=== PATIENT | male | born 1945 | race Caucasian/White ===

== ENCOUNTER 2021-06-13 09:57 | Outpatient (RCR) | payer MEDICARE, OTHER, SELFPAY ==
[2021-06-13 10:35] LABS: Abs Immature Grans 0.03 10^3/uL (0.0-0.06); Absolute Basophil Count 0.04 10^3/uL (0.0-0.2); Absolute Eosinophil Count 0.16 10^3/uL (0.0-0.7); Absolute Lymphocyte Count 0.96 10^3/uL (1.2-3.4); Absolute Monocyte Count 1.03 10^3/uL (0.1-0.8); Absolute Neutrophil Count 6.45 10^3/uL (1.2-6.7); Basophils % 0.5; Eosinophils % 1.8; HCT 45.7 % (40.0-50.0); HGB 15.1 g/dL (13.5-17.5); Immature Grans % 0.3; Lymphocytes % 11.1; MCH 32.1 pg (27.0-33.0); MCV 97.2 fL (80-95); Monocytes % 11.9; Neutrophils % 74.4; Nucleated RBC 0 %; Platelet Count 220 10^3/uL (130-400); RDW 13.4 % (11.8-14.1); RDW-SD 48.5 fL; WBC 8.67 10^3/uL (4.4-10.8)
[2021-06-13 10:50] LABS: ALT 39 U/L (16-63); AST 19 U/L (15-37); Albumin 4.4 g/dL (3.4-5.0); Alkaline Phosphatase 133 U/L (46-116); Anion Gap 10.1 mmol/L (3-11); BUN 25 mg/dL (7-18); Bilirubin, Total 0.4 mg/dL (0.2-1.0); CO2 29.9 mmol/L (21.0-32.0); CREATININE 1.5 mg/dL (0.70-1.30); Calcium 9.2 mg/dL (8.5-10.1); Chloride 102 mmol/L (98-107); Estimated GFR 45.62 (mL/min/1.73m2); Glucose 105 mg/dL (74-106); LDH 153 U/L (85-227); Sodium 142 mmol/L (136-145); Total Protein 7.5 g/dL (6.4-8.2)
== END 2021-06-29 23:59 | disposition home or self-care (01) ==
LOC: INF 09:57
PROVIDERS: PCP Nurse Practitioner Primary Care; Visit Provider Internal Medicine Hematology & Oncology
DX: C83.30 Diffuse large B-cell lymphoma, unspecified site (principal)
CPT/HCPCS: 36415; 80053; 83615; 85025

== ENCOUNTER 2022-04-12 01:27 | Outpatient (RCR) | payer OTHER, SELFPAY | END 2022-04-29 23:59 | disposition home or self-care (01) | LOC: INF 01:27 | PROVIDERS: PCP Nurse Practitioner Primary Care; Visit Provider Internal Medicine Hematology & Oncology | DX: D69.3 Immune thrombocytopenic purpura (principal); Z29.8 Encounter for other specified prophylactic measures | CPT/HCPCS: 96372; Q0221 ==

== ENCOUNTER 2022-05-22 02:12 | Outpatient (RCR) | payer OTHER, SELFPAY ==
[2022-05-01] MEDS: Normal Saline Flush 10 ML SYR IVP (07:19)
[2022-05-01 07:48] LABS: Abs Immature Grans 0.03 10^3/uL (0.0-0.06); Absolute Basophil Count 0.03 10^3/uL (0.0-0.2); Absolute Eosinophil Count 0.19 10^3/uL (0.0-0.7); Absolute Monocyte Count 0.89 10^3/uL (0.1-0.8); Absolute Neutrophil Count 6.67 10^3/uL (1.2-6.7); Basophils % 0.3; Eosinophils % 2.2; HCT 43.7 % (40.0-50.0); HGB 14.7 g/dL (13.5-17.5); Immature Grans % 0.3; Lymphocytes % 11.4; MCH 32.5 pg (27.0-33.0); MCHC 33.6 % (32.0-36.0); MCV 97 fL (80-95); MPV 8.8 fL (8.0-11.0); Monocytes % 10.1; Neutrophils % 75.7; Platelet Count 258 10^3/uL (130-400); RBC 4.53 10^6/uL (4.36-5.78); RDW 13.5 % (11.8-14.1); RDW-SD 47.9 fL; WBC 8.81 10^3/uL (4.4-10.8)
[2022-05-01 08:06] LABS: ALT 27 U/L (16-63); AST 11 U/L (15-37); Albumin 3.8 g/dL (3.4-5.0); Alkaline Phosphatase 132 U/L (46-116); Anion Gap 9.7 mmol/L (3-11); BUN 25 mg/dL (7-18); Bilirubin, Total 0.5 mg/dL (0.2-1.0); CO2 29.3 mmol/L (21.0-32.0); CREATININE 1.7 mg/dL (0.70-1.30); Chloride 103 mmol/L (98-107); Estimated GFR 41.52 (mL/min/1.73m2); Glucose 119 mg/dL (74-106); LDH 154 U/L (85-227); Potassium 3.1 mmol/L (3.5-5.1); Sodium 142 mmol/L (136-145); Total Protein 6.9 g/dL (6.4-8.2)
[2022-05-22] MEDS: Normal Saline Flush 10 ML SYR IVP (07:34)
[2022-05-22 07:44] LABS: Abs Immature Grans 0.12 10^3/uL (0.0-0.06); Absolute Basophil Count 0.03 10^3/uL (0.0-0.2); Absolute Eosinophil Count 0.39 10^3/uL (0.0-0.7); Absolute Monocyte Count 1.28 10^3/uL (0.1-0.8); Basophils % 0.3; Eosinophils % 3.4; HGB 14.5 g/dL (13.5-17.5); Lymphocytes % 10.4; MCH 32.5 pg (27.0-33.0); MCHC 33.7 % (32.0-36.0); MCV 96 fL (80-95); MPV 10.1 fL (8.0-11.0); Monocytes % 11.1; Neutrophils % 73.8; Platelet Count 169 10^3/uL (130-400); RBC 4.46 10^6/uL (4.36-5.78); RDW-SD 49.4 fL; WBC 11.56 10^3/uL (4.4-10.8)
[2022-05-22 07:45] LABS: Absolute Neutrophil Count 8.53 10^3/uL (1.2-6.7)
[2022-05-22 08:00] LABS: ALT 28 U/L (16-63); AST 12 U/L (15-37); Albumin 3.5 g/dL (3.4-5.0); Alkaline Phosphatase 136 U/L (46-116); BUN 18 mg/dL (7-18); Bilirubin, Total 0.6 mg/dL (0.2-1.0); CREATININE 1.4 mg/dL (0.70-1.30); Calcium 8.7 mg/dL (8.5-10.1); Chloride 99 mmol/L (98-107); Estimated GFR 52.09 (mL/min/1.73m2); Glucose 101 mg/dL (74-106); LDH 150 U/L (85-227); Sodium 135 mmol/L (136-145); Total Protein 6.8 g/dL (6.4-8.2)
== END 2022-05-29 23:59 | disposition home or self-care (01) ==
LOC: INF 02:12
PROVIDERS: PCP Nurse Practitioner Primary Care; Visit Provider Internal Medicine Hematology & Oncology
DX: Z45.2 Encounter for adjustment and management of vascular access device (principal); C82.08 Follicular lymphoma grade I, lymph nodes of multiple sites
CPT/HCPCS: 36591; 80053; 83615; 85025

== ENCOUNTER 2022-06-26 02:15 | Outpatient (RCR) | payer OTHER, SELFPAY ==
[2022-06-26] MEDS: Normal Saline Flush 10 ML SYR IVP (07:36)
[2022-06-26 07:48] LABS: Abs Immature Grans 0.04 10^3/uL (0.0-0.06); Absolute Basophil Count 0.08 10^3/uL (0.0-0.2); Absolute Eosinophil Count 0.42 10^3/uL (0.0-0.7); Absolute Lymphocyte Count 1.13 10^3/uL (1.2-3.4); Absolute Monocyte Count 1.18 10^3/uL (0.1-0.8); Absolute Neutrophil Count 6.04 10^3/uL (1.2-6.7); Basophils % 0.9; Eosinophils % 4.7; HCT 39.7 % (40.0-50.0); HGB 13.8 g/dL (13.5-17.5); Immature Grans % 0.4; Lymphocytes % 12.7; MCH 33.3 pg (27.0-33.0); MCHC 34.8 % (32.0-36.0); MCV 96 fL (80-95); MPV 9.4 fL (8.0-11.0); Monocytes % 13.3; Platelet Count 222 10^3/uL (130-400); RBC 4.15 10^6/uL (4.36-5.78); RDW 14.5 % (11.8-14.1); RDW-SD 50.2 fL; WBC 8.89 10^3/uL (4.4-10.8)
[2022-06-26 08:02] LABS: ALT 30 U/L (16-63); AST 18 U/L (15-37); Albumin 3.6 g/dL (3.4-5.0); Alkaline Phosphatase 106 U/L (46-116); Anion Gap 7.5 mmol/L (3-11); BUN 17 mg/dL (7-18); Bilirubin, Total 0.6 mg/dL (0.2-1.0); CO2 29.5 mmol/L (21.0-32.0); CREATININE 1.7 mg/dL (0.70-1.30); Calcium 8.7 mg/dL (8.5-10.1); Chloride 102 mmol/L (98-107); Estimated GFR 41.26 (mL/min/1.73m2); Glucose 108 mg/dL (74-106); LDH 142 U/L (85-227); Potassium 3.2 mmol/L (3.5-5.1); Sodium 139 mmol/L (136-145); Total Protein 6.3 g/dL (6.4-8.2)
== END 2022-06-29 23:59 | disposition home or self-care (01) ==
LOC: INF 02:15
PROVIDERS: PCP Nurse Practitioner Primary Care; Visit Provider Internal Medicine Hematology & Oncology
DX: C82.08 Follicular lymphoma grade I, lymph nodes of multiple sites (principal); Z45.2 Encounter for adjustment and management of vascular access device
CPT/HCPCS: 36591; 80053; 83615; 85025

== ENCOUNTER 2022-07-24 01:54 | Outpatient (RCR) | payer OTHER, SELFPAY ==
[2022-07-24] MEDS: Normal Saline Flush 10 ML SYR IVP (08:36)
[2022-07-24 08:46] LABS: Abs Immature Grans 0.03 10^3/uL (0.0-0.06); Absolute Basophil Count 0.07 10^3/uL (0.0-0.2); Absolute Eosinophil Count 0.21 10^3/uL (0.0-0.7); Absolute Lymphocyte Count 1.26 10^3/uL (1.2-3.4); Absolute Monocyte Count 1.25 10^3/uL (0.1-0.8); Absolute Neutrophil Count 6.27 10^3/uL (1.2-6.7); Basophils % 0.8; Eosinophils % 2.3; HCT 41.8 % (40.0-50.0); HGB 14.3 g/dL (13.5-17.5); Immature Grans % 0.3; Lymphocytes % 13.9; MCH 33.4 pg (27.0-33.0); MCHC 34.2 % (32.0-36.0); MCV 98 fL (80-95); MPV 9.3 fL (8.0-11.0); Monocytes % 13.8; Neutrophils % 68.9; Platelet Count 211 10^3/uL (130-400); RBC 4.28 10^6/uL (4.36-5.78); RDW 14.6 % (11.8-14.1); RDW-SD 52.9 fL; WBC 9.09 10^3/uL (4.4-10.8)
[2022-07-24 09:05] LABS: ALT 30 U/L (16-63); AST 17 U/L (15-37); Albumin 3.8 g/dL (3.4-5.0); Alkaline Phosphatase 106 U/L (46-116); Anion Gap 9.3 mmol/L (3-11); BUN 15 mg/dL (7-18); Bilirubin, Total 0.4 mg/dL (0.2-1.0); CO2 28.7 mmol/L (21.0-32.0); CREATININE 1.7 mg/dL (0.70-1.30); Calcium 8.9 mg/dL (8.5-10.1); Chloride 104 mmol/L (98-107); Estimated GFR 41.26 (mL/min/1.73m2); Glucose 96 mg/dL (74-106); LDH 148 U/L (85-227); Potassium 3.4 mmol/L (3.5-5.1); Sodium 142 mmol/L (136-145); Total Protein 6.6 g/dL (6.4-8.2)
== END 2022-07-30 23:59 | disposition home or self-care (01) ==
LOC: INF 01:54
PROVIDERS: PCP Nurse Practitioner Primary Care; Visit Provider Internal Medicine Hematology & Oncology
DX: C82.08 Follicular lymphoma grade I, lymph nodes of multiple sites (principal); Z45.2 Encounter for adjustment and management of vascular access device
CPT/HCPCS: 36591; 80053; 83615; 85025

== ENCOUNTER 2022-08-21 02:05 | Outpatient (RCR) | payer OTHER, SELFPAY ==
[2022-08-21] MEDS: Normal Saline Flush 10 ML SYR IVP (11:39)
[2022-08-21 11:48] LABS: Abs Immature Grans 0.04 10^3/uL (0.0-0.06); Absolute Basophil Count 0.09 10^3/uL (0.0-0.2); Absolute Eosinophil Count 0.26 10^3/uL (0.0-0.7); Absolute Lymphocyte Count 1.22 10^3/uL (1.2-3.4); Absolute Monocyte Count 1.46 10^3/uL (0.1-0.8); Absolute Neutrophil Count 6.38 10^3/uL (1.2-6.7); Eosinophils % 2.8; HCT 42.2 % (40.0-50.0); HGB 14.3 g/dL (13.5-17.5); Immature Grans % 0.4; Lymphocytes % 12.9; MCH 32.6 pg (27.0-33.0); MCHC 33.9 % (32.0-36.0); MCV 96 fL (80-95); MPV 9.1 fL (8.0-11.0); Monocytes % 15.4; Neutrophils % 67.5; Platelet Count 190 10^3/uL (130-400); RBC 4.38 10^6/uL (4.36-5.78); RDW 14.7 % (11.8-14.1); RDW-SD 52.1 fL; WBC 9.45 10^3/uL (4.4-10.8)
[2022-08-21 12:03] LABS: ALT 28 U/L (16-63); AST 13 U/L (15-37); Albumin 3.7 g/dL (3.4-5.0); Alkaline Phosphatase 128 U/L (46-116); Anion Gap 9.1 mmol/L (3-11); BUN 17 mg/dL (7-18); Bilirubin, Total 0.4 mg/dL (0.2-1.0); CO2 28.9 mmol/L (21.0-32.0); CREATININE 1.7 mg/dL (0.70-1.30); Calcium 9.1 mg/dL (8.5-10.1); Chloride 105 mmol/L (98-107); Estimated GFR 41.26 (mL/min/1.73m2); Glucose 116 mg/dL (74-106); LDH 141 U/L (85-227); Potassium 3.4 mmol/L (3.5-5.1); Sodium 143 mmol/L (136-145); Total Protein 6.4 g/dL (6.4-8.2)
== END 2022-08-27 23:59 | disposition home or self-care (01) ==
LOC: INF 02:05
PROVIDERS: PCP Nurse Practitioner Primary Care; Visit Provider Internal Medicine Hematology & Oncology
DX: C82.08 Follicular lymphoma grade I, lymph nodes of multiple sites (principal); Z45.2 Encounter for adjustment and management of vascular access device
CPT/HCPCS: 36591; 80053; 83615; 85025

== ENCOUNTER 2022-09-18 02:37 | Outpatient (RCR) | payer OTHER, SELFPAY ==
[2022-09-18] MEDS: Normal Saline Flush 10 ML SYR IVP (07:19)
[2022-09-18 07:26] LABS: Abs Immature Grans 0.04 10^3/uL (0.0-0.06); Absolute Basophil Count 0.08 10^3/uL (0.0-0.2); Absolute Eosinophil Count 0.27 10^3/uL (0.0-0.7); Absolute Monocyte Count 1.48 10^3/uL (0.1-0.8); Absolute Neutrophil Count 6.05 10^3/uL (1.2-6.7); Basophils % 0.9; HCT 44.3 % (40.0-50.0); HGB 15.4 g/dL (13.5-17.5); Immature Grans % 0.4; Lymphocytes % 13.2; MCH 32.8 pg (27.0-33.0); MCHC 34.8 % (32.0-36.0); MCV 94 fL (80-95); Monocytes % 16.2; Neutrophils % 66.3; Platelet Count 197 10^3/uL (130-400); RDW 15.1 % (11.8-14.1); RDW-SD 52.3 fL; WBC 9.12 10^3/uL (4.4-10.8)
[2022-09-18 07:46] LABS: ALT 23 U/L (16-63); AST 9 U/L (15-37); Albumin 3.7 g/dL (3.4-5.0); Alkaline Phosphatase 126 U/L (46-116); Anion Gap 7.6 mmol/L (3-11); BUN 23 mg/dL (7-18); Bilirubin, Total 0.4 mg/dL (0.2-1.0); CO2 31.4 mmol/L (21.0-32.0); CREATININE 1.8 mg/dL (0.70-1.30); Calcium 8.9 mg/dL (8.5-10.1); Chloride 105 mmol/L (98-107); Estimated GFR 38.53 (mL/min/1.73m2); Glucose 108 mg/dL (74-106); LDH 122 U/L (85-227); Sodium 144 mmol/L (136-145); Total Protein 6.6 g/dL (6.4-8.2)
[2022-09-18 08:08] LABS: Potassium 2.6 mmol/L (3.5-5.1)
== END 2022-09-27 23:59 | disposition home or self-care (01) ==
LOC: INF 02:37
PROVIDERS: PCP Nurse Practitioner Primary Care; Visit Provider Internal Medicine Hematology & Oncology
DX: Z45.2 Encounter for adjustment and management of vascular access device (principal); C82.08 Follicular lymphoma grade I, lymph nodes of multiple sites
CPT/HCPCS: 36591; 80053; 83615; 85025

== ENCOUNTER 2022-10-16 02:32 | Outpatient (RCR) | payer OTHER, SELFPAY ==
[2022-10-16] MEDS: Normal Saline Flush 10 ML SYR IVP (07:26)
[2022-10-16 07:48] LABS: Abs Immature Grans 0.04 10^3/uL (0.0-0.06); Absolute Basophil Count 0.07 10^3/uL (0.0-0.2); Absolute Eosinophil Count 0.22 10^3/uL (0.0-0.7); Absolute Lymphocyte Count 0.94 10^3/uL (1.2-3.4); Absolute Monocyte Count 1.26 10^3/uL (0.1-0.8); Absolute Neutrophil Count 5.71 10^3/uL (1.2-6.7); Basophils % 0.8; Eosinophils % 2.7; HCT 39.7 % (40.0-50.0); HGB 13.9 g/dL (13.5-17.5); Immature Grans % 0.5; Lymphocytes % 11.4; MCH 33.9 pg (27.0-33.0); MCV 97 fL (80-95); MPV 9.7 fL (8.0-11.0); Monocytes % 15.3; Neutrophils % 69.3; Platelet Count 202 10^3/uL (130-400); RDW 15.4 % (11.8-14.1); RDW-SD 54.6 fL; WBC 8.24 10^3/uL (4.4-10.8)
[2022-10-16 08:02] LABS: ALT 18 U/L (16-63); AST 8 U/L (15-37); Albumin 3.3 g/dL (3.4-5.0); Alkaline Phosphatase 116 U/L (46-116); Anion Gap 10.7 mmol/L (3-11); BUN 18 mg/dL (7-18); Bilirubin, Total 0.4 mg/dL (0.2-1.0); CO2 28.3 mmol/L (21.0-32.0); CREATININE 1.8 mg/dL (0.70-1.30); Calcium 8.5 mg/dL (8.5-10.1); Chloride 106 mmol/L (98-107); Estimated GFR 38.53 (mL/min/1.73m2); Glucose 131 mg/dL (74-106); LDH 122 U/L (85-227); Sodium 145 mmol/L (136-145)
[2022-10-16 08:12] LABS: Potassium 2.6 mmol/L (3.5-5.1)
[2022-10-16 16:31] LABS: Magnesium 1.8 mg/dL (1.8-2.4)
== END 2022-10-27 23:59 | disposition home or self-care (01) ==
LOC: INF 02:32
PROVIDERS: Nurse Practitioner Adult Health; PCP Nurse Practitioner Primary Care; Visit Provider Internal Medicine Hematology & Oncology
DX: Z45.2 Encounter for adjustment and management of vascular access device (principal); C83.38 Diffuse large B-cell lymphoma, lymph nodes of multiple sites
CPT/HCPCS: 36591; 80053; 83615; 83735; 85025

== ENCOUNTER 2022-11-13 02:44 | Outpatient (RCR) | payer OTHER, SELFPAY ==
[2022-11-13] MEDS: Normal Saline Flush 10 ML SYR IVP (07:34)
[2022-11-13 07:53] LABS: Abs Immature Grans 0.03 10^3/uL (0.0-0.06); Absolute Basophil Count 0.11 10^3/uL (0.0-0.2); Absolute Eosinophil Count 0.31 10^3/uL (0.0-0.7); Absolute Lymphocyte Count 0.98 10^3/uL (1.2-3.4); Absolute Monocyte Count 1.29 10^3/uL (0.1-0.8); Absolute Neutrophil Count 4.91 10^3/uL (1.2-6.7); Basophils % 1.4; Eosinophils % 4.1; HCT 40.6 % (40.0-50.0); HGB 14.2 g/dL (13.5-17.5); Immature Grans % 0.4; Lymphocytes % 12.8; MCH 34.6 pg (27.0-33.0); MCV 99 fL (80-95); MPV 9.2 fL (8.0-11.0); Monocytes % 16.9; Neutrophils % 64.4; Platelet Count 184 10^3/uL (130-400); RDW 14.6 % (11.8-14.1); RDW-SD 53.1 fL; WBC 7.63 10^3/uL (4.4-10.8)
[2022-11-13 08:08] LABS: ALT 22 U/L (16-63); AST 9 U/L (15-37); Albumin 3.4 g/dL (3.4-5.0); Alkaline Phosphatase 127 U/L (46-116); Anion Gap 7.3 mmol/L (3-11); BUN 20 mg/dL (7-18); Bilirubin, Total 0.4 mg/dL (0.2-1.0); CO2 28.7 mmol/L (21.0-32.0); CREATININE 1.7 mg/dL (0.70-1.30); Calcium 8.7 mg/dL (8.5-10.1); Chloride 105 mmol/L (98-107); Estimated GFR 41.26 (mL/min/1.73m2); Glucose 107 mg/dL (74-106); LDH 121 U/L (85-227); Sodium 141 mmol/L (136-145); Total Protein 6.2 g/dL (6.4-8.2)
== END 2022-11-27 23:59 | disposition home or self-care (01) ==
LOC: INF 02:44
PROVIDERS: PCP Nurse Practitioner Primary Care; Visit Provider Internal Medicine Hematology & Oncology
DX: Z45.2 Encounter for adjustment and management of vascular access device (principal); C82.08 Follicular lymphoma grade I, lymph nodes of multiple sites
CPT/HCPCS: 36591; 80053; 83615; 85025

== ENCOUNTER 2022-12-11 03:10 | Outpatient (RCR) | payer OTHER, SELFPAY ==
[2022-12-11] MEDS: Normal Saline Flush 10 ML SYR IVP (07:18)
[2022-12-11 07:48] LABS: Abs Immature Grans 0.03 10^3/uL (0.0-0.06); Absolute Basophil Count 0.09 10^3/uL (0.0-0.2); Absolute Eosinophil Count 0.36 10^3/uL (0.0-0.7); Absolute Lymphocyte Count 1.07 10^3/uL (1.2-3.4); Absolute Monocyte Count 1.22 10^3/uL (0.1-0.8); Basophils % 1.3; Eosinophils % 5.3; HCT 40.3 % (40.0-50.0); HGB 13.5 g/dL (13.5-17.5); Immature Grans % 0.4; Lymphocytes % 15.8; MCH 33.5 pg (27.0-33.0); MCHC 33.5 % (32.0-36.0); MCV 100 fL (80-95); MPV 9.1 fL (8.0-11.0); Neutrophils % 59.2; Platelet Count 185 10^3/uL (130-400); RBC 4.03 10^6/uL (4.36-5.78); RDW 14.6 % (11.8-14.1); RDW-SD 53.1 fL; WBC 6.77 10^3/uL (4.4-10.8)
[2022-12-11 08:06] LABS: ALT 17 U/L (16-63); AST 9 U/L (15-37); Albumin 3.4 g/dL (3.4-5.0); Alkaline Phosphatase 102 U/L (46-116); Anion Gap 9.4 mmol/L (3-11); BUN 13 mg/dL (7-18); Bilirubin, Total 0.5 mg/dL (0.2-1.0); CO2 26.6 mmol/L (21.0-32.0); CREATININE 1.3 mg/dL (0.70-1.30); Calcium 8.6 mg/dL (8.5-10.1); Chloride 108 mmol/L (98-107); Estimated GFR 56.93 (mL/min/1.73m2); Glucose 95 mg/dL (74-106); LDH 134 U/L (85-227); Potassium 3.3 mmol/L (3.5-5.1); Sodium 144 mmol/L (136-145); Total Protein 6.2 g/dL (6.4-8.2)
== END 2022-12-27 23:59 | disposition home or self-care (01) ==
LOC: INF 03:10
PROVIDERS: PCP Nurse Practitioner Primary Care; Visit Provider Internal Medicine Hematology & Oncology
DX: Z45.2 Encounter for adjustment and management of vascular access device (principal); C82.08 Follicular lymphoma grade I, lymph nodes of multiple sites
CPT/HCPCS: 36591; 80053; 83615; 85025

== ENCOUNTER 2023-01-08 02:28 | Outpatient (RCR) | payer OTHER, SELFPAY ==
[2023-01-08] MEDS: Normal Saline Flush 10 ML SYR IVP (07:40)
[2023-01-08 07:50] LABS: Abs Immature Grans 0.04 10^3/uL (0.0-0.06); Absolute Eosinophil Count 0.29 10^3/uL (0.0-0.7); Absolute Lymphocyte Count 0.98 10^3/uL (1.2-3.4); Absolute Neutrophil Count 4.81 10^3/uL (1.2-6.7); Basophils % 1.3; Eosinophils % 3.9; HCT 40.7 % (40.0-50.0); HGB 14.2 g/dL (13.5-17.5); Immature Grans % 0.5; Lymphocytes % 13.2; MCH 33.9 pg (27.0-33.0); MCHC 34.9 % (32.0-36.0); MCV 97 fL (80-95); MPV 9.1 fL (8.0-11.0); Monocytes % 16.2; Neutrophils % 64.9; Platelet Count 300 10^3/uL (130-400); RBC 4.19 10^6/uL (4.36-5.78); RDW 13.9 % (11.8-14.1); WBC 7.42 10^3/uL (4.4-10.8)
[2023-01-08 07:55] LABS: Bilirubin Negative (Negative); Blood Negative (Negative); Clarity Clear (Clear); Glucose Negative (Negative); Ketones Trace mg/dL (Negative); Leukocyte Esterase Small (Negative); Nitrite Negative (Negative); Urobilinogen 0.2 mg/dL (Up to 0.2); pH 5.5 (5-8)
[2023-01-08 08:04] LABS: COMMENT (LAB VIEW ONLY) 184.06 mg/dL; Microalb ug/mg Crea 7.1 ug/mg Cr
[2023-01-08 08:16] LABS: ALT 21 U/L (16-63); AST 14 U/L (15-37); Albumin 3.4 g/dL (3.4-5.0); Alkaline Phosphatase 114 U/L (46-116); Anion Gap 11.7 mmol/L (3-11); BUN 14 mg/dL (7-18); Bacteria Few HPF (Negative); Bilirubin, Total 0.3 mg/dL (0.2-1.0); CO2 26.3 mmol/L (21.0-32.0); CREATININE 1.6 mg/dL (0.70-1.30); Calcium 8.9 mg/dL (8.5-10.1); Calculated LDL 77 mg/dL (<100); Chloride 106 mmol/L (98-107); Cholesterol 145 mg/dL (<200); Epithelial Cells Rare HPF (Negative); Estimated GFR 44.38 (mL/min/1.73m2); Glucose 104 mg/dL (74-106); HDL Cholesterol 45 mg/dL (40-60); Potassium 3.2 mmol/L (3.5-5.1); RBC 0-2 HPF (0-2); Sodium 144 mmol/L (136-145); TSH 1.41 uIU/mL (0.36-3.74); Total Protein 6.6 g/dL (6.4-8.2); Triglyceride 116 mg/dL (<150)
[2023-01-08 08:17] LABS: C & S Indicated? Yes; Casts 3-5 Hyaline LPF (Negative); Crystals Negative HPF (Negative); Mucus Negative (Negative)
[2023-01-08 08:33] LABS: LDH 126 U/L (85-227); Uric Acid 3.1 mg/dL (3.5-7.2)
[2023-01-08 10:52] LABS: Vitamin B12 519 pg/mL (193-986)
== END 2023-01-27 23:59 | disposition home or self-care (01) ==
LOC: INF 02:28
PROVIDERS: PCP Nurse Practitioner Primary Care; Visit Provider Internal Medicine Hematology & Oncology
DX: C82.08 Follicular lymphoma grade I, lymph nodes of multiple sites (principal); Z45.2 Encounter for adjustment and management of vascular access device
CPT/HCPCS: 36591; 80053; 80061; 81003; 81015; 82043; 82570; 82607; 83036; 83615; 84443; 84550; 85025; 87086

== ENCOUNTER 2023-02-26 01:33 | Outpatient (RCR) | payer OTHER, SELFPAY ==
[2023-02-05] MEDS: Normal Saline Flush 10 ML SYR IVP (07:33)
[2023-02-05 07:49] LABS: Abs Immature Grans 0.04 10^3/uL (0.0-0.06); Absolute Basophil Count 0.12 10^3/uL (0.0-0.2); Absolute Eosinophil Count 0.36 10^3/uL (0.0-0.7); Absolute Monocyte Count 1.31 10^3/uL (0.1-0.8); Basophils % 1.2; Eosinophils % 3.7; HCT 40.6 % (40.0-50.0); Immature Grans % 0.4; Lymphocytes % 10.4; MCH 33.2 pg (27.0-33.0); MCHC 34.5 % (32.0-36.0); MCV 96 fL (80-95); MPV 9.2 fL (8.0-11.0); Monocytes % 13.6; Neutrophils % 70.7; Platelet Count 219 10^3/uL (130-400); RBC 4.22 10^6/uL (4.36-5.78); RDW 14.4 % (11.8-14.1); RDW-SD 50.8 fL; WBC 9.63 10^3/uL (4.4-10.8)
[2023-02-05 08:08] LABS: ALT 19 U/L (16-63); AST 9 U/L (15-37); Albumin 3.6 g/dL (3.4-5.0); Alkaline Phosphatase 124 U/L (46-116); Anion Gap 10.1 mmol/L (3-11); BUN 12 mg/dL (7-18); Bilirubin, Total 0.6 mg/dL (0.2-1.0); CO2 26.9 mmol/L (21.0-32.0); CREATININE 1.6 mg/dL (0.70-1.30); Chloride 109 mmol/L (98-107); Estimated GFR 44.38 (mL/min/1.73m2); Glucose 99 mg/dL (74-106); LDH 143 U/L (85-227); Potassium 3.6 mmol/L (3.5-5.1); Sodium 146 mmol/L (136-145); Total Protein 6.1 g/dL (6.4-8.2)
[2023-02-26] MEDS: Heparin 500 UNITS/5 ML SYRINGE IV (07:36)
[2023-02-26] MEDS: Normal Saline Flush 10 ML SYR IVP (07:36)
[2023-02-26 07:52] LABS: Abs Immature Grans 0.07 10^3/uL (0.0-0.06); Absolute Basophil Count 0.07 10^3/uL (0.0-0.2); Absolute Eosinophil Count 1.17 10^3/uL (0.0-0.7); Absolute Lymphocyte Count 1.12 10^3/uL (1.2-3.4); Absolute Monocyte Count 1.47 10^3/uL (0.1-0.8); Absolute Neutrophil Count 4.93 10^3/uL (1.2-6.7); Basophils % 0.8; Eosinophils % 13.3; HGB 14.3 g/dL (13.5-17.5); Immature Grans % 0.8; Lymphocytes % 12.7; MCH 33.3 pg (27.0-33.0); MCHC 34.9 % (32.0-36.0); MCV 95 fL (80-95); MPV 9.8 fL (8.0-11.0); Monocytes % 16.6; Neutrophils % 55.8; Platelet Count 194 10^3/uL (130-400); RDW 14.5 % (11.8-14.1); RDW-SD 50.5 fL; WBC 8.83 10^3/uL (4.4-10.8)
[2023-02-26 08:11] LABS: ALT 16 U/L (16-63); AST 6 U/L (15-37); Albumin 3.7 g/dL (3.4-5.0); Alkaline Phosphatase 132 U/L (46-116); Anion Gap 11.5 mmol/L (3-11); BUN 13 mg/dL (7-18); Bilirubin, Total 0.7 mg/dL (0.2-1.0); CO2 27.5 mmol/L (21.0-32.0); CREATININE 1.6 mg/dL (0.70-1.30); Calcium 8.9 mg/dL (8.5-10.1); Chloride 103 mmol/L (98-107); Estimated GFR 44.38 (mL/min/1.73m2); Glucose 100 mg/dL (74-106); LDH 111 U/L (85-227); Potassium 3.1 mmol/L (3.5-5.1); Sodium 142 mmol/L (136-145); Total Protein 6.6 g/dL (6.4-8.2)
== END 2023-02-27 23:59 | disposition home or self-care (01) ==
LOC: INF 01:33
PROVIDERS: PCP Nurse Practitioner Primary Care; Visit Provider Internal Medicine Hematology & Oncology
DX: C82.08 Follicular lymphoma grade I, lymph nodes of multiple sites (principal); Z45.2 Encounter for adjustment and management of vascular access device
CPT/HCPCS: 36591; 80053; 83615; 85025

== ENCOUNTER 2023-04-09 07:20 | Outpatient (RCR) | payer OTHER, SELFPAY ==
[2023-04-02] MEDS: Heparin 500 UNITS/5 ML SYRINGE IV (07:22)
[2023-04-02] MEDS: Normal Saline Flush 10 ML SYR IVP (07:22)
[2023-04-02 07:58] LABS: Abs Immature Grans 0.02 10^3/uL (0.0-0.06); Absolute Basophil Count 0.08 10^3/uL (0.0-0.2); Absolute Eosinophil Count 0.27 10^3/uL (0.0-0.7); Absolute Lymphocyte Count 0.96 10^3/uL (1.2-3.4); Absolute Monocyte Count 1.12 10^3/uL (0.1-0.8); Absolute Neutrophil Count 3.82 10^3/uL (1.2-6.7); Basophils % 1.3; Eosinophils % 4.3; HCT 39.6 % (40.0-50.0); HGB 13.6 g/dL (13.5-17.5); Immature Grans % 0.3; Lymphocytes % 15.3; MCH 33.6 pg (27.0-33.0); MCHC 34.3 % (32.0-36.0); MCV 98 fL (80-95); MPV 9.7 fL (8.0-11.0); Monocytes % 17.9; Neutrophils % 60.9; Platelet Count 177 10^3/uL (130-400); RBC 4.05 10^6/uL (4.36-5.78); RDW 14.9 % (11.8-14.1); RDW-SD 54.3 fL; WBC 6.27 10^3/uL (4.4-10.8)
[2023-04-02 08:25] LABS: ALT 21 U/L (16-63); AST 13 U/L (15-37); Albumin 3.6 g/dL (3.4-5.0); Alkaline Phosphatase 123 U/L (46-116); Anion Gap 11.1 mmol/L (3-11); BUN 14 mg/dL (7-18); Bilirubin, Total 0.5 mg/dL (0.2-1.0); CO2 24.9 mmol/L (21.0-32.0); CREATININE 1.8 mg/dL (0.70-1.30); Calcium 9.3 mg/dL (8.5-10.1); Chloride 107 mmol/L (98-107); Estimated GFR 38.53 (mL/min/1.73m2); Glucose 101 mg/dL (74-106); LDH 153 U/L (85-227); Potassium 3.2 mmol/L (3.5-5.1); Sodium 143 mmol/L (136-145); Total Protein 6.2 g/dL (6.4-8.2)
[2023-04-09] MEDS: Normal Saline Flush 10 ML SYR IVP (07:52)
[2023-04-09 07:57] LABS: Abs Immature Grans 0.03 10^3/uL (0.0-0.06); Absolute Basophil Count 0.19 10^3/uL (0.0-0.2); Absolute Eosinophil Count 0.14 10^3/uL (0.0-0.7); Absolute Neutrophil Count 4.43 10^3/uL (1.2-6.7); Basophils % 2.8; Eosinophils % 2.1; HCT 40.7 % (40.0-50.0); HGB 13.9 g/dL (13.5-17.5); Immature Grans % 0.4; Lymphocytes % 14.9; MCH 33.2 pg (27.0-33.0); MCHC 34.2 % (32.0-36.0); MCV 97 fL (80-95); MPV 8.8 fL (8.0-11.0); Monocytes % 13.5; Neutrophils % 66.3; Platelet Count 228 10^3/uL (130-400); RBC 4.19 10^6/uL (4.36-5.78); RDW 15.2 % (11.8-14.1); RDW-SD 54.5 fL; WBC 6.69 10^3/uL (4.4-10.8)
[2023-04-09 08:14] LABS: ALT 25 U/L (16-63); AST 14 U/L (15-37); Albumin 3.8 g/dL (3.4-5.0); Alkaline Phosphatase 133 U/L (46-116); Anion Gap 10.2 mmol/L (3-11); BUN 14 mg/dL (7-18); Bilirubin, Total 0.5 mg/dL (0.2-1.0); CO2 23.8 mmol/L (21.0-32.0); CREATININE 1.6 mg/dL (0.70-1.30); Calcium 9.2 mg/dL (8.5-10.1); Chloride 108 mmol/L (98-107); Estimated GFR 44.38 (mL/min/1.73m2); Glucose 94 mg/dL (74-106); LDH 163 U/L (85-227); Potassium 3.6 mmol/L (3.5-5.1); Sodium 142 mmol/L (136-145); Total Protein 6.5 g/dL (6.4-8.2)
== END 2023-04-29 23:59 | disposition home or self-care (01) ==
LOC: INF 07:20
PROVIDERS: PCP Nurse Practitioner Primary Care; Visit Provider Internal Medicine Hematology & Oncology
DX: C82.08 Follicular lymphoma grade I, lymph nodes of multiple sites (principal); C83.38 Diffuse large B-cell lymphoma, lymph nodes of multiple sites; Z45.2 Encounter for adjustment and management of vascular access device
CPT/HCPCS: 36591; 80053; 83615; 85025

== ENCOUNTER 2023-05-07 01:09 | Outpatient (RCR) | payer OTHER, SELFPAY ==
[2023-05-07] MEDS: Normal Saline Flush 10 ML SYR IVP (07:32)
[2023-05-07 08:01] LABS: Abs Immature Grans 0.03 10^3/uL (0.0-0.06); Absolute Basophil Count 0.09 10^3/uL (0.0-0.2); Absolute Eosinophil Count 0.16 10^3/uL (0.0-0.7); Absolute Lymphocyte Count 0.94 10^3/uL (1.2-3.4); Absolute Monocyte Count 1.15 10^3/uL (0.1-0.8); Absolute Neutrophil Count 4.64 10^3/uL (1.2-6.7); Basophils % 1.3; Eosinophils % 2.3; HCT 38.6 % (40.0-50.0); HGB 13.2 g/dL (13.5-17.5); Immature Grans % 0.4; Lymphocytes % 13.4; MCH 33.5 pg (27.0-33.0); MCHC 34.2 % (32.0-36.0); MCV 98 fL (80-95); MPV 9.2 fL (8.0-11.0); Monocytes % 16.4; Neutrophils % 66.2; Platelet Count 211 10^3/uL (130-400); RBC 3.94 10^6/uL (4.36-5.78); RDW 14.7 % (11.8-14.1); WBC 7.01 10^3/uL (4.4-10.8)
[2023-05-07 08:19] LABS: ALT 22 U/L (16-63); AST 10 U/L (15-37); Albumin 3.6 g/dL (3.4-5.0); Alkaline Phosphatase 122 U/L (46-116); Anion Gap 11.2 mmol/L (3-11); BUN 15 mg/dL (7-18); Bilirubin, Total 0.5 mg/dL (0.2-1.0); CO2 23.8 mmol/L (21.0-32.0); CREATININE 1.4 mg/dL (0.70-1.30); Calcium 9.1 mg/dL (8.5-10.1); Chloride 109 mmol/L (98-107); Estimated GFR 52.09 (mL/min/1.73m2); Glucose 101 mg/dL (74-106); LDH 141 U/L (85-227); Potassium 3.6 mmol/L (3.5-5.1); Sodium 144 mmol/L (136-145); Total Protein 6.1 g/dL (6.4-8.2)
== END 2023-05-29 23:59 | disposition home or self-care (01) ==
LOC: INF 01:09
PROVIDERS: PCP Nurse Practitioner Primary Care; Visit Provider Internal Medicine Hematology & Oncology
DX: C82.08 Follicular lymphoma grade I, lymph nodes of multiple sites (principal); C83.38 Diffuse large B-cell lymphoma, lymph nodes of multiple sites; Z45.2 Encounter for adjustment and management of vascular access device
CPT/HCPCS: 36591; 80053; 83615; 85025

== ENCOUNTER 2023-06-04 02:31 | Outpatient (RCR) | payer OTHER, SELFPAY ==
[2023-06-04 08:03] LABS: Abs Immature Grans 0.03 10^3/uL (0.0-0.06); Absolute Eosinophil Count 0.37 10^3/uL (0.0-0.7); Absolute Lymphocyte Count 1.11 10^3/uL (1.2-3.4); Absolute Monocyte Count 1.47 10^3/uL (0.1-0.8); Absolute Neutrophil Count 6.28 10^3/uL (1.2-6.7); Basophils % 1.1; HCT 39.5 % (40.0-50.0); HGB 13.3 g/dL (13.5-17.5); Immature Grans % 0.3; Lymphocytes % 11.9; MCH 33.5 pg (27.0-33.0); MCHC 33.7 % (32.0-36.0); MCV 100 fL (80-95); MPV 9.6 fL (8.0-11.0); Monocytes % 15.7; Platelet Count 186 10^3/uL (130-400); RBC 3.97 10^6/uL (4.36-5.78); RDW 14.6 % (11.8-14.1); RDW-SD 53.4 fL; WBC 9.36 10^3/uL (4.4-10.8)
[2023-06-04] MEDS: Normal Saline Flush 10 ML SYR IVP (08:04)
[2023-06-04 08:21] LABS: ALT 24 U/L (16-63); AST 11 U/L (15-37); Albumin 3.5 g/dL (3.4-5.0); Alkaline Phosphatase 126 U/L (46-116); Anion Gap 9.8 mmol/L (3-11); BUN 15 mg/dL (7-18); Bilirubin, Total 0.4 mg/dL (0.2-1.0); CO2 27.2 mmol/L (21.0-32.0); CREATININE 1.6 mg/dL (0.70-1.30); Calcium 8.7 mg/dL (8.5-10.1); Chloride 107 mmol/L (98-107); Glucose 99 mg/dL (74-106); LDH 155 U/L (85-227); Potassium 3.9 mmol/L (3.5-5.1); Sodium 144 mmol/L (136-145); Total Protein 5.9 g/dL (6.4-8.2)
== END 2023-06-29 23:59 | disposition home or self-care (01) ==
LOC: INF 02:31
PROVIDERS: PCP Nurse Practitioner Primary Care; Visit Provider Internal Medicine Hematology & Oncology
DX: C82.08 Follicular lymphoma grade I, lymph nodes of multiple sites (principal); C83.38 Diffuse large B-cell lymphoma, lymph nodes of multiple sites; Z45.2 Encounter for adjustment and management of vascular access device
CPT/HCPCS: 36591; 80053; 83615; 85025